=== PATIENT | male | born 1985 | race Caucasian/White ===

== ENCOUNTER 2024-06-03 19:58 | Emergency (ER) | payer OTHER, SELFPAY ==
[2024-06-03 20:03] VITALS: BP 136/87
[2024-06-03] MEDS: KEFLEX 500 MG PO (21:47)
--- NOTE | 2024-06-03 22:35 | ED.SKININJ ---
HPI-Injury
General
Chief Complaint: Skin Problem
Source: patient
Exam Limitations: none
Time Seen by Provider: 06/03/24 20:57
Nursing documentation reviewed up to this point in time: agreed with
History of Present Illness-Injury
Initial Injury comments:
Accidentally cut self on machine at work. Has small laceration to dorsum of left hand. Full ROM to hand, no evidence of tendon injury. Incident occurred this evening. Brought self to ED for eval.
Past History
Past History
ED Past Medical History: None
ED Past Surgical History: Orthopedic
Social History
Tobacco: Smoker
Living: with family
Employment: Employed
Review of Systems
Review of Systems
Allergies reviewed?: Yes
All Other Systems: ROS reviewed and negative except as documented in HPI and ROS
Constitutional: Reports no symptoms
Musculoskeletal: Reports no symptoms
Skin: Reports other (Laceratiion to dorsum of left hand)
Neurological: Reports no symptoms
Psychiatric: Reports no symptoms
Skin Exam
Laceration
Left Dorsal Hand:
Length in cm: 1.5
Orientation: horizontal
Type of Laceration: simple
Any active bleeding?: no active bleeding
Distal skin color and temperature: normal-warm & good color
Normal distal neurovascular exam: Yes
Range of motion: full
Phy Exam
General Physical Exam
General Presentation: well appearing and no apparent distress
General age: appears stated age
General Skin: warm and dry
General Habitus: normal
General Mental: alert
Musculoskeletal Exam
Musculoskeletal Exam: full ROM and neuro vasc intact
Skin Exam
Skin Exam: normal color, warm/dry and no rash
Psychiatric Exam
Psychiatric Exam: normal mood/affect
Course
Orders/Labs/Results
Orders:
Orders
06/03/24 21:43
Cephalexin Monohydrate [Keflex] 500 mg PO NOW STA
Vital Signs
Initial and Last Documented VS:
Initial Vital Signs
Temp Pulse Resp BP Pulse Ox
98.6 F 88 19 136/87 98
06/03/24 20:03 06/03/24 20:03 06/03/24 20:03 06/03/24 20:03 06/03/24 20:03
Last Documented Vital Signs
Temp Pulse Resp BP Pulse Ox
98.6 F 88 19 136/87 98
06/03/24 20:03 06/03/24 20:03 06/03/24 20:03 06/03/24 20:03 06/03/24 20:03
Procedures
Laceration Closure
Left Dorsal Hand:
Status of Wound: clean
Description of Wound Edges: sharp
Preparation: cleaned with saline, cleaned with Betadine and cleaned with SurClens
Anesthesia: 1% Lidocaine with epi
Revision/Debridement: routine- no revision and irrigate-direct pressure
Wound exploration: explored to base- no FB and no tendon involvement
Type of Closure: single layer closure
Skin Closure Material: 5-0 prolene
*Critical Care Note
Total Time (30-74mins, 75-104mins- exclusive of procedures): Not Applicable
ED Attending Note
-
Portions of this chart may have been created with voice recognition software.� Occasional wrong word or��sound alike� substitutions may have occurred due to the inherent limitations of voice recognition software.
Discharge Plan
Departure
Patient Disposition: Home (Routine Discharge)
Date of Disposition: 06/03/24
Time of Disposition: 21:23
Patient with high blood pressure during this ER visit?: No
Condition: Good
Covid-19: Not Applicable
Discharge Problem:
Laceration of hand
Instructions: Laceration Repair With Stitches ED
Prescriptions:
New
cephalexin 500 mg capsule
500 mg PO BID 7 Days Qty: 14 0RF
No Action
ibuprofen 800 MG tablet
800 mg PO QIDPRN PRN (Reason: pain, take with food) Qty: 30 0RF
Activity Restrictions/Additional Instructions:
Sutures can be removed in 7-10 days by your family doctor
Interventions
Interventions:
*Risk Screen - Suicide Last Done: 06/03/24 20:03
*Neglect/Abuse Screening Last Done: 06/03/24 20:03
*Nursing Disposition Last Done: 06/03/24 21:40
ED-Skin Assessment Last Done: 06/03/24 21:39
Discharge Date and Time
Discharge Date/Time: 06/03/24 21:50
Print Language: ITALIAN
== END 2024-06-03 21:50 | disposition home or self-care (01) ==
LOC: EMR 19:58
PROVIDERS: EMERGENCY PHYSICIAN Emergency Medicine
DX: S61.412A Laceration without foreign body of left hand, initial encounter (principal); W31.9XXA Contact with unspecified machinery, initial encounter; Y99.0 Civilian activity done for income or pay; F17.200 Nicotine dependence, unspecified, uncomplicated
CPT/HCPCS: 12001; 99282